=== PATIENT | male | born 1995 | race Caucasian/White ===

== ENCOUNTER 2025-08-25 19:34 | Emergency (ER) | payer MEDICAID ==
[~2025-08-25] VITALS: Ht 180.3 cm; Wt 79.5 kg
[2025-08-25 19:36] VITALS: TEMP 97.5
--- NOTE | 2025-08-25 20:27 | RADIOLOGY REPORT ---
EXAM: DI HAND, COMPLETE (3VW MIN) INDICATION: HAND PAIN TECHNIQUE: 3 views of the right hand COMPARISON: None FINDINGS/IMPRESSION: Indeterminate area of lucency which may be artifactual along the mid waist of the scaphoid. Further evaluation with CT if clinically indicated. Bone island of the 5th middle phalanx.
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
[2025-08-25] MEDS ORDERED: LISI10TA27 PO (21:07)
[2025-08-25 21:24] VITALS: BP 173/123; PULSE 91; RESP 16; O2SAT 98
== END 2025-08-25 21:29 | disposition home or self-care (01) ==
LOC: ER 19:35
DX: S60.211A Contusion of right wrist, initial encounter (principal); S64.496A Injury of digital nerve of right little finger, initial encounter; I10 Essential (primary) hypertension; Z79.899 Other long term (current) drug therapy; X58.XXXA Exposure to other specified factors, initial encounter; Y93.89 Activity, other specified; Y92.89 Other specified places as the place of occurrence of the external cause; Y99.8 Other external cause status
CPT/HCPCS: 73130; 99283